=== PATIENT | female | born 1975 | race Hispanic/Latino ===

== ENCOUNTER 2017-07-08 11:12 | Emergency (ER) | payer OTHER ==
[2017-07-08] MEDS ORDERED: Sodium Chloride 0.9% 1,000 ML IV STA ×2 (11:47→11:49)
--- NOTE | 2017-07-08 12:00 | ED PDOC ---
Arrival/HPI - General Chief Complaint: GI Problem Time Seen by Provider: 07/08/17 11:39 Historian: Patient - History of Present Illness Narrative History of Present Illness (Text): 07/08/17 11:53 A 42 year old female, whose past medical history includes gastric band for 10 years, presents to the emergency department complaining of fever, chills and nausea for 3 days. Patient reports she had her gastric band deflated a few months ago to be able to get . She notes her symptoms began shortly after having her gastric band readjusted approximately a week ago on 06/29. Patient denies any vomiting, diarrhea, abdominal pain, chest pain, shortness of breath or any other complaints. Time/Duration: Other (3 days) Symptom Course: Unchanged Context: Home Past Medical History - Provider Review Nursing Documentation Reviewed: Yes - Infectious Disease Hx of Infectious Diseases: None - Tetanus Immunization Tetanus Immunization: Unknown - Past Medical History Past Medical History: No Previous - Cardiac Hx Cardiac Disorders: No - Pulmonary Hx Respiratory Disorders: No - Neurological Hx Neurological Disorder: No - HEENT Hx HEENT Disorder: No - Renal Hx Renal Disorder: No - Endocrine/Metabolic Hx Endocrine Disorders: No - Hematological/Oncological Hx Blood Disorders: No - Integumentary Hx Dermatological Disorder: No - Musculoskeletal/Rheumatological Hx Musculoskeletal Disorders: No - Gastrointestinal Hx Gastrointestinal Disorders: Yes Other/Comment: lap band - Genitourinary/Gynecological Hx Genitourinary Disorders: No - Psychiatric Hx Anxiety: Yes Hx Substance Use: No - Past Surgical History Past Surgical History: No Previous - Surgical History Other/Comment: lap band - Anesthesia Hx Anesthesia: Yes Hx Anesthesia Reactions: No Hx Malignant Hyperthermia: No - Suicidal Assessment Feels Threatened In Home Enviroment: No Family/Social History - Physician Review Nursing Documentation Reviewed: Yes Family/Social History: No Known Family HX Smoking Status: Never Smoked Hx Alcohol Use: No Hx Substance Use: No Hx Substance Use Treatment: No Allergies/Home Meds Allergies/Adverse Reactions: Allergies No Known Allergies Allergy (Verified 07/08/17 11:23) Home Medications: Home Meds Medication Instructions Recorded Confirmed No Known Home Med 07/08/17 07/08/17 Review of Systems - Physician Review All systems were reviewed & negative as marked: Yes - Review of Systems Constitutional: Fevers, Night Sweats Respiratory: absent: SOB Cardiovascular: absent: Chest Pain Gastrointestinal: Nausea. absent: Abdominal Pain, Diarrhea, Vomiting Physical Exam Vital Signs Reviewed: Yes Vital Signs Temp Pulse Resp BP Pulse Ox 07/08/17 12:58 101 F H 07/08/17 11:26 102.9 F H 87 18 93/65 L 100 07/08/17 11:24 102.9 F H 87 19 93/65 L 98 Temperature: Febrile Blood Pressure: Hypotensive Pulse: Regular Respiratory Rate: Normal Appearance: Positive for: Well-Appearing, Non-Toxic, Comfortable Pain Distress: None Mental Status: Positive for: Alert and Oriented X 3 - Systems Exam Head: Present: Atraumatic, Normocephalic Pupils: Present: PERRL Extroacular Muscles: Present: EOMI Conjunctiva: Present: Normal Mouth: Present: Moist Mucous Membranes Neck: Present: Normal Range of Motion Respiratory/Chest: Present: Clear to Auscultation, Good Air Exchange. No: Respiratory Distress, Accessory Muscle Use Cardiovascular: Present: Regular Rate and Rhythm, Normal S1, S2. No: Murmurs Abdomen: Present: Normal Bowel Sounds. No: Tenderness, Distention, Peritoneal Signs Back: Present: Normal Inspection Upper Extremity: Present: Normal Inspection. No: Cyanosis, Edema Lower Extremity: Present: Normal Inspection. No: Edema Neurological: Present: GCS=15, CN II-XII Intact, Speech Normal Skin: Present: Warm, Dry, Normal Color. No: Rashes Psychiatric: Present: Alert, Oriented x 3, Normal Insight, Normal Concentration Medical Decision Making ED Course and Treatment: 07/08/17 11:53 Impression: A 42 year old female with fever, chills and nausea. Patient recently had gastric band adjusted. Plan: -- Chest xray -- Labs -- Blood and Urine culture -- Urinalysis -- Influenza A B stat -- Tylenol, Zofran and IV fluids -- Reassess and disposition Progress Notes: Report Date : 07/08/2017 12:38:10 Procedure: Chest xray Dictator : Yung David MD IMPRESSION: No active disease. - Lab Interpretations Lab Results: 07/08/17 11:50 07/08/17 11:50 Lab Results 07/08/17 11:50: Sodium 142, Chloride 103, Potassium 3.7, Carbon Dioxide 27, Anion Gap 17, BUN 13, Creatinine 0.8, Est GFR ( Amer) > 60, Est GFR (Non- Af Amer) > 60, Random Glucose 108, Calcium 10.0, Total Bilirubin 0.7, AST 24, ALT 24, Alkaline Phosphatase 84, Total Protein 7.7, Albumin 4.2, Globulin 3.5, Albumin/Globulin Ratio 1.2, Lipase 48 07/08/17 11:50: pO2 34, VBG pH 7.41, VBG pCO2 45.0, VBG HCO3 28.5 H, VBG Total CO2 29.9 H, VBG O2 Sat (Calc) 68.3 H, VBG Base Excess 3.2 H, VBG Potassium 3.7, Sodium 138.0, Chloride 104.0, Glucose 106 H, Lactate 1.4, FiO2 21.0, Venous Blood Potassium 3.7 07/08/17 11:50: Urine Color Yellow, Urine Appearance Sl cloudy, Urine pH 6.0, Ur Specific [place] 1.020, Urine Protein Negative, Urine Glucose (UA) Negative, Urine Ketones Negative, Urine Blood Moderate H, Urine Nitrate Negative, Urine Bilirubin Negative, Urine Urobilinogen 0.2, Ur Leukocyte Esterase Trace H, Urine RBC 1 - 3, Urine WBC 2 - 5, Ur Epithelial Cells 3 - 4, Urine Bacteria Mod 07/08/17 11:50: PT 13.8 H, INR 1.20 H 07/08/17 11:50: Influenza Typ A,B (EIA) Negative for flu a/b 07/08/17 11:50: WBC 13.5 H D, RBC 4.33, Hgb 13.1, Hct 39.0, MCV 90.1, MCH 30.3, MCHC 33.6, RDW 12.9, Plt Count 233, MPV 8.9, Gran % 88.5 H, Lymph % (Auto) 6.5 L , [place] % (Auto) 4.5, Eos % (Auto) 0.4 L, Baso % (Auto) 0.1, Gran # 11.91 H, Lymph # (Auto) 0.9 L, [place] # (Auto) 0.6, Eos # (Auto) 0.1, Baso # (Auto) 0.01 I have reviewed the lab results: Yes - RAD Interpretation Radiology Orders: 07/08/17 11:47 CHEST PORTABLE [RAD] Stat - Medication Orders Current Medication Orders: Discontinued Medications Acetaminophen (Tylenol 325mg Tab) 975 mg PO STAT STA Stop: 07/08/17 11:49 Last Admin: 07/08/17 12:08 Dose: 975 mg MAR Pain/Vitals Document 07/08/17 12:08 GMD (Rec: 07/08/17 12:08 GMD [id number]) Presence of Pain Presence of Pain Yes Sodium Chloride (Sodium Chloride 0.9%) 1,000 mls @ 999 mls/hr IV .Q1H1M STA Stop: 07/08/17 12:47 Last Admin: 07/08/17 12:08 Dose: 999 mls/hr eMAR Start Stop Document 07/08/17 12:08 GMD (Rec: 07/08/17 12:08 GMD [id number]) Intravenous Solution Start Date 07/08/17 Start Time 12:08 End Date 07/08/17 End time 13:08 Total Infusion Time 60 Sodium Chloride (Sodium Chloride 0.9%) 1,000 mls @ 999 mls/hr IV .Q1H1M STA Stop: 07/08/17 12:49 Ondansetron HCl (Zofran Inj) 4 mg IVP STAT STA Stop: 07/08/17 11:48 Last Admin: 07/08/17 12:08 Dose: 4 mg IVP Administration Document 07/08/17 12:08 GMD (Rec: 07/08/17 12:08 GMD [id number]) Charges for Administration # of IVP Administrations 1 - PA / COMPOSITION TILE LAYER / Resident Statement MD/DO has reviewed & agrees with the documentation as recorded. - Scribe Statement The provider has reviewed the documentation as recorded by the Best Garcia Provider Scribe Attestation: All medical record entries made by the Noemíiboralia were at my direction and personally dictated by me. I have reviewed the chart and agree that the record accurately reflects my personal performance of the history, physical exam, medical decision making, and the department course for this patient. I have also personally directed, reviewed, and agree with the discharge instructions and disposition. Disposition/Present on Arrival - Present on Arrival Any Indicators Present on Arrival: No History of DVT/PE: No History of Uncontrolled Diabetes: No Urinary Catheter: No History of Decub. Ulcer: No History Surgical Site Infection Following: None - Disposition Have Diagnosis and Disposition been Completed?: Yes Diagnosis: Viral syndrome Disposition: HOME/ ROUTINE Disposition Time: 13:12 Patient Plan: Discharge Condition: GOOD Discharge Instructions (ExitCare): Viral Syndrome (DC) Additional Instructions: Mrs Ramos- So sorry this is hitting you so hard. All of your tests are good, no flu, normal cxr, normal labs. I wrote for Zofran for you to help with the nausea/ vomiting. Drink plenty of fluids, take tylenol or motrin for your fever, return to us if worse and see your doctors for follow up. Sheldon- Dr. Alex Zhao Forms: [facility] (Turkish)
[2017-07-08 12:28] LABS: VENOUS BLOOD GAS BASE EXCESS 3.2 mmol/L (0.0-2.0); VENOUS BLOOD GAS PO2 34 mm/Hg (30-55); VENOUS BLOOD PH 7.41 (7.32-7.43)
[2017-07-08 12:30] LABS: BASO # 0.01 K/mm3 (0.0-2.0); BASO % 0.1 % (0.0-3.0); EOS # 0.1 (0.0-0.7); EOS % 0.4 % (1.5-5.0); GRAN # 11.91 (1.4-6.5); GRAN % 88.5 % (50.0-68.0); HEMOGLOBIN 13.1 g/dL (12.0-16.0); LYMPH # 0.9 (1.2-3.4); LYMPH % 6.5 % (22.0-35.0); MEAN CELL VOLUME 90.1 fl (80.0-105.0); MEAN CORPUSCULAR HEMOGLOBIN 30.3 pg (25.0-35.0); MEAN CORPUSCULAR HGB CONC 33.6 g/dl (31.0-37.0); MEAN PLATELET VOLUME 8.9 fl (7.0-11.0); MONO # 0.6 (0.1-0.6); MONO % 4.5 % (1.0-6.0); RBC 4.33 10^6/uL (3.5-6.1); RED CELL DISTRIBUTION WIDTH 12.9 % (11.5-14.5); URINE BILIRUBIN NEGATIVE (NEGATIVE); URINE BLOOD MODERATE (NEGATIVE); URINE GLUCOSE (UA) NEGATIVE (NEGATIVE); URINE LEUKOCYTE ESTERASE TRACE Leu/uL (NEGATIVE); URINE PROTEIN NEGATIVE mg/dL (<30 mg/dL); URINE UROBILINOGEN 0.2 E.U./dL (<1 E.U./dL); WHITE BLOOD COUNT 13.5 10^3/ul (4.5-11.0)
[2017-07-08 12:31] LABS: URINE APPEARANCE SL CLOUDY (CLEAR); URINE COLOR YELLOW (YELLOW)
[2017-07-08 12:33] LABS: URINE BACTERIA MOD (NEG)
[2017-07-08 12:34] LABS: INR 1.2 (0.93-1.08); PROTHROMBIN TIME 13.8 SECONDS (9.4-12.5)
[2017-07-08 12:38] LABS: ALB/GLOB RATIO 1.2 (1.1-1.8); ALBUMIN 4.2 g/dL (3.0-4.8); ALT/SGPT 24 U/L (7-56); AST/SGOT 24 U/L (14-36); BLOOD UREA NITROGEN 13 mg/dL (7-21); GFR AFRICAN-AMERICAN > 60; GFR NON-AFRICAN AMERICAN > 60; LIPASE 48 U/L (23-300)
--- NOTE | 2017-07-08 12:39 | RAD ---
HISTORY: Fever of 102.9 COMPARISON: 01/21/2014 FINDINGS: LUNGS: No focal consolidation to suggest pneumonia PLEURA: No significant pleural effusion identified, no pneumothorax apparent. CARDIOVASCULAR: Normal. OSSEOUS STRUCTURES: No significant abnormalities. VISUALIZED UPPER ABDOMEN: Normal. OTHER FINDINGS: None. IMPRESSION: No active disease.
[2017-07-08 12:52] VITALS: RESP 18; BMI 35.7
[2017-07-08 13:38] VITALS: BP 109/55; PULSE 98; TEMP 99; O2SAT 98
== END 2017-07-08 13:51 | disposition home or self-care (01) ==
LOC: ED 11:12
DX: B34.9 Viral infection, unspecified (principal)
CPT/HCPCS: 71045; 80053; 81001; 82803; 83690; 85025; 85610; 87040; 87086; 87804; 96361; 96374; 99285; J2405; J7040

== ENCOUNTER 2018-09-06 09:21 | Outpatient (CLI) | payer OTHER | END 2018-09-06 09:22 | disposition home or self-care (01) | LOC: RAD 09:21 ==